=== PATIENT | female | born 1985 | race African-American/Black ===

== ENCOUNTER 2025-07-25 11:06 | Emergency (ER) | payer MEDICAID, OTHER ==
[~2025-07-25] VITALS: Ht 170.2 cm; Wt 60.0 kg
[2025-07-25 11:07] VITALS: O2SAT 100
[2025-07-25 11:41] LABS: PLATELET 215 x1000/uL (130-400); RED BLOOD CELL COUNT 4.04 mill/uL (4.2-5.4); RED CELL DISTRIBUTION WIDTH 13.9 % (11.6-14.6)
[2025-07-25] MEDS: LACTATED RINGERS 1,000 ML IV SCH (11:43)
[2025-07-25] MEDS: LEVETIRACETAM 500MG PREMIX 100 ML IV ONE ×2 (11:43)
[2025-07-25 11:54] LABS: CREATININE 0.9 mg/dL (0.6-1.0); UREA NITROGEN BLOOD 8 mg/dL (9-23)
[2025-07-25 11:55] LABS: PROTEIN TOTAL 7.6 g/dL (6.0-8.3)
[2025-07-25 11:56] LABS: ASPARTATE AMINOTRANSFERASE 64 IU/L (<34); BILIRUBIN TOTAL 0.3 mg/dL (0.1-1.0)
[2025-07-25 12:12] LABS: HCG SCREEN NEGATIVE
[2025-07-25] MEDS: ACETAMINOPHEN 325MG TABLET PO ONE (12:31)
[2025-07-25 13:50] VITALS: BP 108/60; PULSE 87; RESP 18; TEMP 36.8; O2SAT 99
== END 2025-07-25 13:56 | disposition home or self-care (01) ==
LOC: ER 11:06
DX: R56.9 Unspecified convulsions (principal); R51.9 Headache, unspecified; J45.909 Unspecified asthma, uncomplicated
CPT/HCPCS: 99285; 96365; 70450; 80053; 84703; 85027; 36415; J1953